=== PATIENT | female | born 1935 | race Caucasian/White ===

== ENCOUNTER 2016-06-19 13:07 | Emergency (ER) | payer MEDICARE, OTHER ==
[~2016-06-19 13:07] MED LIST: ENOXAPARIN SODIUM INJ 30 MG/0.3 ML DISP.SYRIN ONE; TENECTEPLASE INJ 50 MG KIT IV ONE
[2016-06-19] MEDS ORDERED: PROPOFOL 100 ML IV ONE (13:28)
--- NOTE | 2016-06-19 13:49 | ER Document Report ---
ED General - General Stated Complaint: DIFFICULTY BREATHING Mode of Arrival: Medic Information source: Patient, Relative, Emergency Med Personnel Cannot obtain history due to: Unstable vital signs Notes: 80-year-old female no known medical history presents with complaints of shortness of breath over the past 2 days worsening suddenly today. Patient was placed on BiPAP by EMS and was still satting in the mid 80s. Patient denied any chest pain but admits to sudden weakness 2 days ago - HPI Onset: Other Onset/Duration: Persistent Quality of pain: No pain Severity: Severe Pain Level: Denies Associated symptoms: Shortness of breath, Weakness Exacerbated by: Denies Relieved by: Denies Similar symptoms previously: No Recently seen / treated by doctor: No Past Medical History - Social History Smoking Status: Never Smoker Cigarette use (# per day): No Chew tobacco use (# tins/day): No Smoking Education Provided: No Family History: Reviewed & Not Pertinent Review of Systems - Review of Systems Notes: REVIEW OF SYSTEMS: CONSTITUTIONAL : Denies fever, chills, or sweats. Denies recent illness. EENT: Denies eye, ear, throat, or mouth pain or symptoms. Denies nasal or sinus congestion or discharge. Denies throat, tongue, or mouth swelling or difficulty swallowing. CARDIOVASCULAR: Denies chest pain. Denies palpitations or racing or irregular heart beat. Denies ankle edema. RESPIRATORY: Admits to shortness of breath difficulty breathing GASTROINTESTINAL: Denies abdominal pain or distention. Denies nausea, vomiting , or diarrhea. Denies blood in vomitus, stools, or per rectum. Denies black, tarry stools. Denies constipation. GENITOURINARY: Denies difficulty urinating, painful urination, burning, frequency, blood in urine, or discharge. FEMALE GENITOURINARY: Denies vaginal bleeding, heavy or abnormal periods, irregular periods. Denies vaginal discharge or odor. MUSCULOSKELETAL: Denies back or neck pain or stiffness. Denies joint pain or swelling. SKIN: Denies rash, lesions or sores. HEMATOLOGIC : Denies easy bruising or bleeding. LYMPHATIC: Denies swollen, enlarged glands. NEUROLOGICAL: Denies confusion or altered mental status. Denies passing out or loss of consciousness. Denies dizziness or lightheadedness. Denies headache. Denies weakness or paralysis or loss of use of either side. Denies problems with gait or speech. Denies sensory loss, numbness, or tingling. Denies seizures. PSYCHIATRIC: Denies anxiety or stress. Denies depression, suicidal ideation, or homicidal ideation. ALL OTHER SYSTEMS REVIEWED AND NEGATIVE. Dictation was performed using [employer] voice recognition software PHYSICAL EXAMINATION: GENERAL: Well-appearing, well-nourished and in acute respiratory distress HEAD: Atraumatic, normocephalic. EYES: Pupils equal round and reactive to light, extraocular movements intact, conjunctiva are normal. ENT: Nares patent, oropharynx clear without exudates. Moist mucous membranes. NECK: Normal range of motion, supple without lymphadenopathy LUNGS: Coarse rhonchi all throughout acute respiratory distress on BiPAP HEART: Regular rate and rhythm without murmurs ABDOMEN: Soft, nontender, nondistended abdomen. No guarding, no rebound. No masses appreciated. Female : deferred Musculoskeletal: Normal range of motion, no pitting or edema. No cyanosis. NEUROLOGICAL: Cranial nerves grossly intact. Normal speech, normal gait. Normal sensory, motor exams PSYCH: Normal mood, normal affect. SKIN: Warm, Dry, normal turgor, no rashes or lesions noted. Physical Exam - Vital signs Vitals: Pulse Ox 98 06/19/16 14:12 Course - Re-evaluation Re-evalutation: 06/19/16 13:47 [facility] transfer paged for possible TX. Possible ST elevations with mild ischemic changes noted not clear enough to call an TX at this time Delay in initial EKG due to patient's agitation and respiratory failure requiring intubation 06/19/16 14:16 Repeat EKG was performed at this time there is clear ST elevations, patient has been considered a myocardial infarct, I will give lytics at this time Elevated troponin is noted 06/19/16 14:19 06/19/16 14:43 Patient will be performed out was accepted by Dr. Posey - Vital Signs Vital signs: Temp Pulse Resp BP Pulse Ox 98 06/19/16 14:12 - Laboratory Result Diagrams: 06/19/16 13:15 06/19/16 13:15 Laboratory results interpreted by me: 06/19/16 06/19/16 06/19/16 13:15 13:15 13:15 WBC 20.6 H Hgb 9.9 L Hct 32.3 L MCV 75 L MCH 23.0 L MCHC 30.5 L RDW 20.5 H Sodium 130.4 L Carbon Dioxide 16 L Glucose 241 H NT-Pro-B Natriuret Pep 7000 H - Diagnostic Test Radiology reviewed: Image reviewed, Reports reviewed - EKG Interpretation by Me EKG shows normal: Sinus rhythm, [place], Intervals, QRS Complexes, ST-T Waves - ST elevations noted in leads V2 V3 with depressions in V5 V6 When compared to previous EKG there are: Changes noted Critical Care Note - Critical Care Note Total time excluding time spent on procedures (mins): 55 Comments: 55 minutes of critical care time spent in direct contact evaluating and reevaluating the patient, treating symptoms, reviewing labs and studies and speaking with family and consultants excluding any procedures Discharge - Discharge Clinical Impression: Respiratory failure requiring intubation Myocardial infarct Qualifiers: Myocardial infarction ST status: ST elevation myocardial infarction Involved coronary artery: unspecified coronary artery Qualified Code(s): I21.3 - ST elevation (STEMI) myocardial infarction of unspecified site Congestive heart failure Qualifiers: Congestive heart failure type: systolic Congestive heart failure chronicity: acute Qualified Code(s): I50.21 - Acute systolic (congestive) heart failure Condition: Stable Disposition: [facility]
[2016-06-19 13:53] LABS: HEMATOCRIT 32.3 % (36.0-47.0); HEMOGLOBIN 9.9 g/dL (12.0-15.5); HGB HCT DIFFERENCE -2.6; MEAN CORPUSCULAR HGB CONC 30.5 g/dL (32.0-36.0); MEAN CORPUSCULAR VOLUME 75 fl (80-97); RED BLOOD COUNT 4.28 10^6/uL (3.72-5.28); RED CELL DISTRIBUTION WIDTH 20.5 % (11.5-14.0); WHITE BLOOD COUNT 20.6 10^3/uL (4.0-10.5)
[2016-06-19 13:57] LABS: ALANINE AMINOTRANSFERASE 21 U/L (9-52); ALBUMIN 3.6 g/dL (3.5-5.0); ALKALINE PHOSPHATASE 91 U/L (38-126); ANION GAP 16 (5-19); ASPARTATE AMINO TRANSFERASE 24 U/L (14-36); BILIRUBIN,DIRECT 0.4 mg/dL (0.0-0.4); BILIRUBIN,TOTAL 1.3 mg/dL (0.2-1.3); BLOOD UREA NITROGEN 18 mg/dL (7-20); CALCIUM 8.7 mg/dL (8.4-10.2); CARBON DIOXIDE 16 mmol/L (22-30); CHLORIDE 98 mmol/L (98-107); CREATINE KINASE 111 U/L (30-135); CREATININE RESULT 0.79 mg/dL (0.52-1.25); GLUCOSE 241 mg/dL (75-110); POTASSIUM 4.2 mmol/L (3.6-5.0); SODIUM 130.4 mmol/L (137-145); TOTAL PROTEIN 6.6 g/dL (6.3-8.2)
[2016-06-19 14:09] LABS: CREATINE KINASE MB 3.84 ng/mL (<4.55)
[2016-06-19] MEDS ORDERED: ASPIRIN 325 MG TABLET ONE (14:12)
[2016-06-19 14:17] LABS: TROPONIN I 0.855 ng/mL
[2016-06-19 14:43] LABS: BASOPHILS % (MANUAL) 1 % (0-2); EOSINOPHILS % (MANUAL) 0 % (0-6); LYMPHOCYTES % (MANUAL) 64 % (13-45); TOTAL CELLS COUNTED 100
[2016-06-19 14:44] LABS: ANISOCYTOSIS 2+; BURR CELLS 2+; HYPOCHROMASIA SLIGHT; MICROCYTOSIS 1+; OVALOCYTES 1+; POIKILOCYTOSIS 2+; SCHISTOCYTES SLIGHT; SMUDGE CELLS PRESENT
--- NOTE | 2016-06-19 18:17 | EKG REPORT ---
SEVERITY:- ABNORMAL ECG - SINUS TACHYCARDIA PROBABLE LEFT ATRIAL ABNORMALITY LVH WITH SECONDARY REPOLARIZATION ABNORMALITY ANTERIOR INFARCT, AGE INDETERMINATE : Confirmed by: Cale Santos MD 19-Jun-2016 18:17:01
--- NOTE | 2016-06-19 18:17 | EKG REPORT ---
SEVERITY:- ABNORMAL ECG - SINUS RHYTHM PROBABLE LEFT ATRIAL ABNORMALITY LEFT ANTERIOR FASCICULAR BLOCK LVH WITH SECONDARY REPOLARIZATION ABNORMALITY ANTERIOR INFARCT, AGE INDETERMINATE BORDERLINE PROLONGED QT INTERVAL : Confirmed by: Cale Santos MD 19-Jun-2016 18:16:51
[2016-06-19 22:21] VITALS: BP 107/59
[2016-06-22 12:32] LABS: PATH REVIEW PATHOLOGIST REVIEWED
== END 2016-06-19 14:30 | disposition short-term general hospital (02) ==
LOC: ER 13:07
DX: I21.3 ST elevation (STEMI) myocardial infarction of unspecified site (principal); I50.21 Acute systolic (congestive) heart failure; J96.90 Respiratory failure, unspecified, unspecified whether with hypoxia or hypercapnia; R06.02 Shortness of breath
CPT/HCPCS: 93005; 99291; 51702; 36415; 82553; 82550; 85025; 80053; 84484; 83880; 71010; 93010; J3101; J2704; J1650